=== PATIENT | female | born 1945 | race Caucasian/White ===

== ENCOUNTER → 2017-07-30 | Outpatient (CLI) | payer MEDICARE, BC | END | disposition home or self-care (01) | LOC: RAH 09:25 | PROVIDERS: ATTEND Family Medicine | DX: Z12.31 Encounter for screening mammogram for malignant neoplasm of breast (principal) | CPT/HCPCS: 77067 ==

== ENCOUNTER → 2018-08-05 | Outpatient (CLI) | payer MEDICARE | END | disposition home or self-care (01) | LOC: RAH 09:42 | PROVIDERS: ATTEND Family Medicine | DX: Z12.31 Encounter for screening mammogram for malignant neoplasm of breast (principal) | CPT/HCPCS: 77067 ==

== ENCOUNTER → 2019-08-19 | Outpatient (CLI) | payer MEDICARE | END | disposition home or self-care (01) | LOC: RAH 07-29 03:13 | PROVIDERS: ATTEND Family Medicine | DX: Z12.31 Encounter for screening mammogram for malignant neoplasm of breast (principal); N64.89 Other specified disorders of breast | CPT/HCPCS: 77067 ==

== ENCOUNTER → 2019-12-29 | Outpatient (CLI) | payer MEDICARE | END | disposition home or self-care (01) | LOC: CANPRECLI → RAH 15:03 | PROVIDERS: ATTEND Psychiatry & Neurology Neurology | DX: I67.82 Cerebral ischemia (principal); G20 Parkinson's disease; R41.3 Other amnesia | CPT/HCPCS: 70551 ==

== ENCOUNTER 2020-01-01 22:22 | Observation (INO) | payer MEDICARE ==
[~2020-01-01] VITALS: Ht 154.9 cm; Wt 51.7 kg
[2020-01-01 22:52] LABS: BASOPHILS % (AUTO) 0.5 % (0.0-5.0); HEMATOCRIT 41.9 % (36-48); LYMPHOCYTES % (AUTO) 16.2 % (21.0-51.0); MEAN CORPUSCULAR HEMOGLOBIN 29.5 pg (27.0-33.0); MEAN CORPUSCULAR VOLUME 92.3 fL (79-99); MONOCYTES % (AUTO) 6.9 % (3.0-13.0); NEUTROPHILS % (AUTO) 75.1 % (40.0-77.0); PLATELET COUNT (AUTO) 239 K/uL (130-400); RED BLOOD CELL COUNT(AUTO) 4.54 MIL/uL (4.00-5.50); RED CELL DISTRIBUTION WIDTH 14.6 % (11.0-15.5); WHITE BLOOD COUNT (AUTO) 10.2 K/uL (4.8-10.8)
[2020-01-01 22:57] LABS: APPEARANCE,URINE Cloudy (CLEAR); BILIRUBIN,URINE Small (NEGATIVE); COLOR,URINE Dark Yellow (YELLOW); GLUCOSE, URINE (UA) Negative (NEGATIVE); KETONES,URINE 15 mg/dL (NEGATIVE); LEUKOCYTE ESTERASE ,URINE Moderate (NEGATIVE); NITRATE,URINE Negative (NEGATIVE); OCCULT BLOOD,URINE Negative (NEGATIVE); PROTEIN,URINE POS 2+ mg/dL (NEGATIVE)
[2020-01-01 23:03] LABS: CARBON DIOXIDE 28 mmol/L (21-32); CHLORIDE 103 mmol/L (101-111); CREATININE 2.3 mg/dL (0.5-1.5); GLOMERULAR FILTR. RATE CALC 22 mL/min (>60); GLUCOSE,RANDOM 104 mg/dL (70-105); SODIUM SERUM 140 mmol/L (136-145); UREA NITROGEN, BLOOD 35 mg/dL (7-18)
[2020-01-01 23:07] LABS: ASPARTATE AMINOTRANSFERASE 22 U/L (10-37); BILIRUBIN,TOTAL 0.3 mg/dL (0.2-1.0); CREATINE KINASE, TOTAL 115 U/L (21-232); TOTAL PROTEIN, SERUM 7.8 g/dL (6.0-8.3)
[2020-01-01 23:09] LABS: INR 0.89 (0.85-1.15); PARTIAL THROMBOPLASTIN TIME 24.2 SEC (26.3-35.5); PROTHROMBIN TIME 9.7 SEC (9.6-11.6)
[2020-01-01 23:18] LABS: ALANINE AMINOTRANSFERASE < 6 U/L (12-78)
[2020-01-02] VITALS (11 sets, daily range): BP systolic 127–193; BP diastolic 66–95
[2020-01-02 00:06] LABS: RBC,URINE 0-1 /HPF (0-1)
[2020-01-02 00:07] LABS: BACTERIA,URINE Few /HPF (None Seen); FINE GRANULAR CASTS,URINE 0-2 /LPF (None Seen)
[2020-01-02] MEDS ORDERED: CEFTRIAXONE SODIUM 1 GM ONE ×2 (00:25→20:58)
[2020-01-02] MEDS ORDERED: RASA1TAB4 PO (02:26)
[2020-01-02] MEDS ORDERED: CARB-101 PO (02:26)
[2020-01-02] MEDS ORDERED: LISI10TA7 PO (02:26)
[2020-01-02] MEDS ORDERED: METO-408 PO (02:26)
[2020-01-02 06:10] LABS: HEMATOCRIT 39.5 % (36-48); MEAN CORPUSCULAR HEMOGLOBIN 29.2 pg (27.0-33.0); MEAN CORPUSCULAR HGB CONC 31.9 g/dL (32.0-36.0); MEAN CORPUSCULAR VOLUME 91.6 fL (79-99); RED BLOOD CELL COUNT(AUTO) 4.31 MIL/uL (4.00-5.50); RED CELL DISTRIBUTION WIDTH 14.5 % (11.0-15.5)
[2020-01-02 06:31] LABS: ALANINE AMINOTRANSFERASE 8 U/L (12-78); ALBUMIN 3.5 g/dL (3.5-5.0); ASPARTATE AMINOTRANSFERASE 17 U/L (10-37); BILIRUBIN,TOTAL 0.2 mg/dL (0.2-1.0); CARBON DIOXIDE 28 mmol/L (21-32); CHLORIDE 106 mmol/L (101-111); CREATINE KINASE, TOTAL 91 U/L (21-232); CREATININE 1.5 mg/dL (0.5-1.5); GLOMERULAR FILTR. RATE CALC 36 mL/min (>60); GLUCOSE,RANDOM 115 mg/dL (70-105); MYOGLOBIN 76 ng/mL (10-92); POTASSIUM 4.2 mmol/L (3.5-5.1); SODIUM SERUM 142 mmol/L (136-145); TROPONIN I < 0.04 ng/mL (0.00-0.06); UREA NITROGEN, BLOOD 36 mg/dL (7-18)
[2020-01-02] MEDS: RASAGILINE MESYLATE 1 MG PO SCH (09:00)
[2020-01-02] MEDS: CARBIDOPA-LEVODOPA 25-100 TAB PO SCH ×4 (09:19→21:00)
[2020-01-02] MEDS: LISINOPRIL 10 MG TABLET PO SCH (09:19)
[2020-01-02 10:33] LABS: CREATINE KINASE, TOTAL 94 U/L (21-232); MYOGLOBIN 61 ng/mL (10-92); TROPONIN I < 0.04 ng/mL (0.00-0.06)
--- NOTE | 2020-01-02 17:32 | NUR ---
cm note met with patient and states resides at home with partner. Sloan Cali [phone] , no dme.independent with adls/ambulation. pt drives. dc plan is back home. no dc needs. Addendum: 01/02/20 at 1801 by ZHANG COTTON CM Amended: Links added.
[2020-01-02] MEDS ORDERED: AMLODIPINE BESYLATE 5 MG TAB PO SCH (18:25)
[2020-01-02] MEDS: CEFTRIAXONE SODIUM 1 GM IVP SCH (21:01)
[2020-01-02] MEDS ORDERED: ACETAMINOPHEN 650 MG SUPPOSITORY RC PRN (22:15)
[2020-01-02] MEDS ORDERED: ONDANSETRON HCL 4 MG/2 ML VIAL IVP PRN (22:15)
[2020-01-02] MEDS ORDERED: ACETAMINOPHEN 325 MG TAB PO PRN (22:15)
[2020-01-02] MEDS ORDERED: TEMAZEPAM 15 MG CAPSULE PO PRN (22:15)
[2020-01-03] VITALS (10 sets, daily range): BP systolic 104–180; BP diastolic 52–88
[2020-01-03] MEDS: HYDRALAZINE HCL 20 MG/ML VIAL IV PRN ×2 (01:43→03:23)
--- NOTE | 2020-01-03 04:27 | NUR ---
PT'S BP HAS BEEN ELEVATED THROUGHOUT THE NIGHT WITH THE LATEST BP OF 180/88. I HAVE GIVEN HYDRALAZINE IV A TOTAL OF 2 TIMES. PT IS NOW COMPLAINING OF CP TIGHTNESS. 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 AWAITING RETURN PHONE CALL.
[2020-01-03] MEDS: LEVOTHYROXINE 25 MCG TABLET PO SCH (05:55)
[2020-01-03 06:03] LABS: HEMATOCRIT 44.9 % (36-48); MEAN CORPUSCULAR HEMOGLOBIN 29.3 pg (27.0-33.0); MEAN CORPUSCULAR HGB CONC 32.1 g/dL (32.0-36.0); MEAN CORPUSCULAR VOLUME 91.4 fL (79-99); RED BLOOD CELL COUNT(AUTO) 4.91 MIL/uL (4.00-5.50); RED CELL DISTRIBUTION WIDTH 14.6 % (11.0-15.5)
[2020-01-03 06:32] LABS: CREATININE 0.9 mg/dL (0.5-1.5); POTASSIUM 5.4 mmol/L (3.5-5.1)
[2020-01-03] MEDS: RASAGILINE MESYLATE 1 MG PO SCH (09:00)
[2020-01-03] MEDS: ASPIRIN 325MG EC TAB 325 MG TABLET.DR PO SCH (09:20)
[2020-01-03] MEDS: LISINOPRIL 10 MG TABLET PO SCH (09:21)
[2020-01-03] MEDS: CARBIDOPA-LEVODOPA 25-100 TAB PO SCH ×4 (09:21→20:34)
[2020-01-03] MEDS: FAMOTIDINE 20MG TAB 20 MG TAB PO SCH (09:21)
[2020-01-03] MEDS: ENOXAPARIN SODIUM 40 MG/0.4 ML SYRINGE SQ SCH (09:22)
[2020-01-03] MEDS: AMLODIPINE BESYLATE 5 MG TAB PO SCH (09:33)
[2020-01-03] MEDS ORDERED: FUROSEMIDE 10 MG/ML 2ML VIAL IV SCH (13:02)
[2020-01-03] MEDS: CEFTRIAXONE SODIUM 1 GM IVP SCH (20:37)
[2020-01-04 04:00] VITALS: BP 186/107
[2020-01-04 04:35] LABS: CREATININE 1.1 mg/dL (0.5-1.5); POTASSIUM 4.3 mmol/L (3.5-5.1)
[2020-01-04] MEDS: LISINOPRIL 10 MG TABLET PO SCH (04:49)
[2020-01-04] MEDS: AMLODIPINE BESYLATE 5 MG TAB PO SCH (04:49)
[2020-01-04] MEDS: LEVOTHYROXINE 25 MCG TABLET PO SCH (04:50)
[2020-01-04 07:30] VITALS: BP 169/88
[2020-01-04] MEDS: CARBIDOPA-LEVODOPA 25-100 TAB PO SCH ×3 (09:00→16:21)
[2020-01-04] MEDS: RASAGILINE MESYLATE 1 MG PO SCH (09:00)
[2020-01-04] MEDS: FAMOTIDINE 20MG TAB 20 MG TAB PO SCH (09:06)
[2020-01-04] MEDS: ASPIRIN 325MG EC TAB 325 MG TABLET.DR PO SCH (09:06)
[2020-01-04] MEDS: ENOXAPARIN SODIUM 40 MG/0.4 ML SYRINGE SQ SCH (09:07)
[2020-01-04 11:00] VITALS: BP_SYST 105; BP_SYST 111; BP_SYST 94; BP_DIAS 59; BP_DIAS 61; BP_DIAS 67
[2020-01-04 16:00] VITALS: BP 153/89
[2020-01-04] MEDS: HYDRALAZINE HCL 20 MG/ML VIAL IV PRN (16:06)
[2020-01-04] MEDS ORDERED: LEVO25TA9 PO (18:01)
[2020-01-04] MEDS ORDERED: AMLO5TAB4 PO (18:01)
[2020-01-04] MEDS ORDERED: SIMVASTATIN 20 MG TABLET PO SCH (22:00)
== END 2020-01-04 19:45 | disposition home or self-care (01) ==
LOC: EDH 22:22 → EDHIP 01-02 00:50 → 3BH 01-02 01:40
PROVIDERS: ADMIT Internal Medicine Pulmonary Disease; ATTEND Internal Medicine Pulmonary Disease
DX: R55 Syncope and collapse (principal); N17.9 Acute kidney failure, unspecified; N39.0 Urinary tract infection, site not specified; E78.5 Hyperlipidemia, unspecified; I10 Essential (primary) hypertension; G20 Parkinson's disease; E03.9 Hypothyroidism, unspecified; C05.0 Malignant neoplasm of hard palate; I65.23 Occlusion and stenosis of bilateral carotid arteries; I34.0 Nonrheumatic mitral (valve) insufficiency; Z85.828 Personal history of other malignant neoplasm of skin; Z90.710 Acquired absence of both cervix and uterus
CPT/HCPCS: 36415 ×4; 70450; 70544; 70551; 71045; 72125; 80048 ×2; 80053 ×2; 80061; 81001; 82550 ×3; 83874 ×2; 84484 ×4; 85025; 85027 ×2; 85610; 85730; 87088; 93005 ×2; 93306; 93356; 93880; 96372 ×2; 96374; 96375; 96376 ×2; 97161; 99285; G0378 ×25; G8978; G8979; G8980; G8981; G8982; G8983; J0360; J0696 ×3; J1650 ×2; J1940; J2405

== ENCOUNTER → 2020-08-21 | Outpatient (CLI) | payer MEDICARE ==
[~2020-08-21] MED LIST: AMLO5TAB4 PO; LEVO25TA9 PO; LISI10TA24 PO; RASA1TAB4 PO; [UNRECOGNIZED DRUG - CODE] PO
== END | disposition home or self-care (01) ==
LOC: RAH 15:20
PROVIDERS: ATTEND Family Medicine
DX: Z12.31 Encounter for screening mammogram for malignant neoplasm of breast (principal)
CPT/HCPCS: 77067

== ENCOUNTER → 2021-08-22 | Outpatient (CLI) | payer MEDICARE | END | disposition home or self-care (01) | LOC: RAH 11:20 | PROVIDERS: ATTEND Family Medicine | DX: Z12.31 Encounter for screening mammogram for malignant neoplasm of breast (principal) | CPT/HCPCS: 77067 ==

== ENCOUNTER → 2022-08-23 | Outpatient (CLI) | payer MEDICARE ==
[~2022-08-23] MED LIST changes: +CARB-336 PO; -[UNRECOGNIZED DRUG - CODE] PO
== END | disposition home or self-care (01) ==
LOC: RAH 08:39
PROVIDERS: ATTEND Family Medicine
DX: Z12.31 Encounter for screening mammogram for malignant neoplasm of breast (principal)
CPT/HCPCS: 77067

== ENCOUNTER → 2024-08-27 | Outpatient (CLI) | payer MEDICARE ==
--- NOTE | 2024-08-27 13:41 | HMCIMG ---
MAMMO SCREENING BILATERAL HISTORY: Screening mammogram. COMPARISON: 08/25/2023 TECHNIQUE: Bilateral screening mammogram with CAD was performed with craniocaudal and mediolateral oblique projections. FINDINGS: There are scattered areas of fibroglandular density. There is no evidence of a dominant mass, or suspicious microcalcification. There is no evidence of nipple retraction or skin thickening. IMPRESSION: 1. Stable mammogram. Patient was entered into a reminder system with a target due date for their next mammogram. BI-RADS: CATEGORY 2: BENIGN FINDINGS Recommend monthly self breast exam as well as annual clinical examination. A negative x-ray should not delay biopsy if a dominant or clinically suspicious mass is present, since 8-10% of cancers are not identified by mammography. Dense breasts particularly, may obscure an underlying neoplasm. Some of these may be detected clinically and therefore, clinical examination is an essential part of breast evaluation.
== END | disposition home or self-care (01) ==
LOC: RAH 09:56
PROVIDERS: ATTEND Family Medicine
DX: Z12.31 Encounter for screening mammogram for malignant neoplasm of breast (principal); R92.323 Mammographic fibroglandular density, bilateral breasts
CPT/HCPCS: 77067